=== PATIENT | female | born 1985 | race Caucasian/White ===

== ENCOUNTER 2018-03-15 18:53 | Emergency (ER) | payer MEDICAID ==
[~2018-03-15] VITALS: Ht 170.2 cm; Wt 76.8 kg
[2018-03-15 18:57] VITALS: TEMP 98.4
[2018-03-15] MEDS ORDERED: NEURONTIN400 MG/CAP PO (19:29)
[2018-03-15] MEDS ORDERED: DESYREL 100MG100 MG PO (19:29)
[2018-03-15] MEDS ORDERED: TESSALON P100 MG/CAP PO (19:29)
[2018-03-15 19:38] VITALS: BP 118/60; PULSE 82
== END 2018-03-15 19:43 | disposition home or self-care (01) ==
LOC: COL.ER 18:53
DX: G40.909 Epilepsy, unspecified, not intractable, without status epilepticus (principal); G47.8 Other sleep disorders; R05 Cough; Z90.710 Acquired absence of both cervix and uterus

== ENCOUNTER 2018-03-22 15:24 | Emergency (ER) | payer MEDICAID ==
[~2018-03-22] VITALS: Ht 170.2 cm; Wt 78.6 kg
[~2018-03-22 15:24] MED LIST: DESYREL 100MG100 MG PO; NEURONTIN400 MG/CAP PO; TESSALON P100 MG/CAP PO
[2018-03-22] MEDS ORDERED: IBU600 MG PO (16:55)
[2018-03-22] MEDS ORDERED: NEURONTIN800 MG/TAB PO (16:55)
[2018-03-22] MEDS ORDERED: ROBAXIN 50500 MG/TAB PO (17:03)
[2018-03-22 17:04] VITALS: BP 108/76; PULSE 105; TEMP 97
== END 2018-03-22 17:04 | disposition home or self-care (01) ==
LOC: COL.ER 15:24
DX: Z76.0 Encounter for issue of repeat prescription (principal); G40.909 Epilepsy, unspecified, not intractable, without status epilepticus

== ENCOUNTER 2018-03-24 20:22 | Emergency (ER) | payer MEDICAID ==
[~2018-03-24] VITALS: Ht 170.2 cm; Wt 79.3 kg
[~2018-03-24 20:22] MED LIST changes: +IBU600 MG PO; +NEURONTIN800 MG/TAB PO; +ROBAXIN 50500 MG/TAB PO
[2018-03-24 20:30] VITALS: TEMP 98.8
[2018-03-24 21:09] LABS: BASO # 0.1 (0.0-0.2); BASO % 0.7 % (0.0-2.0); EOS # 0.1 (0.0-0.7); EOS % 0.8 % (0-4.0); GRAN # 5.1 (1.4-6.5); GRAN % 68.5 % (42.2-75.2); HEMATOCRIT 39.1 % (37.0-47.0); HEMOGLOBIN 13.5 g/dl (12.5-16.0); LYMPH # 1.8 (1.2-3.4); MEAN CELL VOLUME 85 fl (80.0-100.0); MEAN CORPUSCULAR HEMOGLOBIN 29 pg (27.0-31.0); MEAN CORPUSCULAR HGB CONC 35 g/dl (33.0-37.0); MEAN PLATELET VOLUME 9.6 fl (7.4-10.4); MONO # 0.4 (0.1-0.6); MONO % 5.9 % (1.7-9.3); PLATELET COUNT 261 K/mm3 (130-400); RED BLOOD COUNT 4.62 M/mm3 (4.10-5.30); REDCELL DISTRIBUTION WIDTH-CV 13.1 % (11.5-14.5)
[2018-03-24 21:22] LABS: ALBUMIN 4.4 gm/dL (3.5-5.0); BILIRUBIN,TOTAL 0.4 mg/dL (0.0-1.0); CALCIUM 9.7 mg/dL (8.4-10.2); CREATININE, serum 0.84 mg/dL (0.52-1.25); POTASSIUM 3.4 mmol/L (3.4-5.0); TOTAL PROTEIN 8.2 gm/dL (6.4-8.2)
[2018-03-24 23:33] VITALS: BP 131/76; PULSE 89
== END 2018-03-24 23:46 | disposition home or self-care (01) ==
LOC: COL.ER 20:22
PROVIDERS: Nurse Practitioner
DX: R10.2 Pelvic and perineal pain (principal); Z90.710 Acquired absence of both cervix and uterus; Z98.890 Other specified postprocedural states
CPT/HCPCS: J1170; Q9967

== ENCOUNTER 2018-04-19 14:26 | Inpatient (IN) | payer MEDICAID ==
[2018-04-19] VITALS (8 sets, daily range): BP systolic 96–128; BP diastolic 54–78; PULSE 64–94; TEMP 97.5
[~2018-04-19] VITALS: Ht 170.2 cm; Wt 77.3 kg
[2018-04-19 15:28] LABS: BASO # 0.1 (0.0-0.2); EOS % 0.2 % (0-4.0); GRAN # 4.3 (1.4-6.5); GRAN % 71.3 % (42.2-75.2); HEMATOCRIT 39.2 % (37.0-47.0); HEMOGLOBIN 13.4 g/dl (12.5-16.0); LYMPH # 1.4 (1.2-3.4); LYMPH % 22.2 % (20.0-51.0); MEAN CELL VOLUME 84 fl (80.0-100.0); MEAN CORPUSCULAR HEMOGLOBIN 29 pg (27.0-31.0); MEAN CORPUSCULAR HGB CONC 34 g/dl (33.0-37.0); MEAN PLATELET VOLUME 9.9 fl (7.4-10.4); MONO # 0.3 (0.1-0.6); MONO % 5.1 % (1.7-9.3); PLATELET COUNT 269 K/mm3 (130-400); RED BLOOD COUNT 4.65 M/mm3 (4.10-5.30); REDCELL DISTRIBUTION WIDTH-CV 13.3 % (11.5-14.5)
[2018-04-19 15:41] LABS: ALANINE AMINOTRANSFERASE 66 U/L (9-52); ALBUMIN 4.3 gm/dL (3.5-5.0); ALKALINE PHOSPHATASE 37 U/L (50-136); ANION GAP 11 mmol/L (7-16); AST,SGOT 40 U/L (15-37); BILIRUBIN,TOTAL 0.5 mg/dL (0.0-1.0); BLOOD UREA NITROGEN 12 mg/dL (7-17); CALCIUM 9.7 mg/dL (8.4-10.2); CARBON DIOXIDE 24 mmol/L (22-30); CHLORIDE 107 mmol/L (98-107); CREATININE, serum 0.74 mg/dL (0.52-1.25); GLUCOSE 101 mg/dL (74-106); POTASSIUM 3.7 mmol/L (3.4-5.0); SODIUM 143 mmol/L (137-145); TOTAL PROTEIN 8.1 gm/dL (6.4-8.2)
[2018-04-19 15:49] LABS: COLLECTION METHOD CLEAN CATCH
[2018-04-19 16:00] LABS: C-REACTIVE PROTEIN < 0.5 mg/dL (0.0-0.9)
[2018-04-19 16:04] LABS: PH 6 (5-8); SQUAMOUS EPITHELIAL None Seen /hpf; URINE APPEARANCE Clear; URINE BACTERIA None Seen /hpf; URINE BILIRUBIN Negative (NEGATIVE); URINE BLOOD 3+ (NEGATIVE); URINE COLOR Yellow; URINE GLUCOSE Negative (NEGATIVE); URINE KETONE Negative (NEGATIVE); URINE LEUKOCYTE ESTERASE Negative (NEGATIVE); URINE NITRATE Negative (NEGATIVE); URINE PROTEIN(semi-quant) Negative (NEGATIVE); URINE UROBILINOGEN Negative (NEGATIVE)
[2018-04-20 05:20] VITALS: BP 94/54; PULSE 76; TEMP 97.8
[2018-04-20 08:03] VITALS: BP 112/63; PULSE 67; TEMP 98.5
[2018-04-20] MEDS ORDERED: IBU800 M1 PO (10:08)
[2018-04-20] MEDS ORDERED: ROXICODONE15 MG PO (10:09)
[2018-04-20 12:15] VITALS: BP 101/63; PULSE 74; TEMP 98
[2018-04-20 16:24] VITALS: BP 115/69; PULSE 74; TEMP 97.8
== END 2018-04-20 20:05 | disposition home or self-care (01) | DRG 909 ==
LOC: COL.ER 14:26 → SDCO 16:20 → OB 18:19 → SDCO 19:00 → OB 19:05
PROVIDERS: Emergency Medicine; Obstetrics & Gynecology
PROC: 0DNN0ZZ Release Sigmoid Colon, Open Approach (ICD-10-PCS; 2018-04-19)
PROC: 0UQG0ZZ Repair Vagina, Open Approach (ICD-10-PCS; principal; 2018-04-19 18:00)
DX: T81.31XA Disruption of external operation (surgical) wound, not elsewhere classified, initial encounter (principal); K66.0 Peritoneal adhesions (postprocedural) (postinfection); G40.909 Epilepsy, unspecified, not intractable, without status epilepticus; Z86.11 Personal history of tuberculosis; B18.2 Chronic viral hepatitis C
CPT/HCPCS: A4314; C1765; J0690; J1100; J1170; J1885; J2060; J2250; J2405; J2704; J2710; J2795; J3010; J7030; J7120

== ENCOUNTER 2018-04-24 17:36 | Emergency (ER) | payer MEDICAID ==
[~2018-04-24] VITALS: Ht 170.2 cm; Wt 77.3 kg
[~2018-04-24 17:36] MED LIST changes: +IBU800 M1 PO; +ROXICODONE15 MG PO
[2018-04-24 17:40] VITALS: TEMP 98.4
[2018-04-24 18:07] LABS: COLLECTION METHOD CLEAN CATCH
[2018-04-24 18:13] LABS: BASO % 0.7 % (0.0-2.0); EOS # 0.1 (0.0-0.7); EOS % 2.4 % (0-4.0); GRAN # 3.6 (1.4-6.5); GRAN % 62.3 % (42.2-75.2); HEMOGLOBIN 11.8 g/dl (12.5-16.0); LYMPH # 1.6 (1.2-3.4); LYMPH % 26.9 % (20.0-51.0); MEAN CELL VOLUME 85 fl (80.0-100.0); MEAN CORPUSCULAR HEMOGLOBIN 29 pg (27.0-31.0); MEAN CORPUSCULAR HGB CONC 34 g/dl (33.0-37.0); MEAN PLATELET VOLUME 9.8 fl (7.4-10.4); MONO # 0.4 (0.1-0.6); MONO % 7.5 % (1.7-9.3); PLATELET COUNT 281 K/mm3 (130-400); RED BLOOD COUNT 4.08 M/mm3 (4.10-5.30); REDCELL DISTRIBUTION WIDTH-CV 13.3 % (11.5-14.5)
[2018-04-24 18:14] LABS: HEMATOCRIT 34.8 % (37.0-47.0); PH 6 (5-8); SQUAMOUS EPITHELIAL None Seen /hpf; URINE APPEARANCE Clear; URINE BACTERIA None Seen /hpf; URINE BILIRUBIN Negative (NEGATIVE); URINE BLOOD Negative (NEGATIVE); URINE COLOR Straw; URINE GLUCOSE Negative (NEGATIVE); URINE KETONE Negative (NEGATIVE); URINE LEUKOCYTE ESTERASE Negative (NEGATIVE); URINE NITRATE Negative (NEGATIVE); URINE PROTEIN(semi-quant) Negative (NEGATIVE); URINE RBC 0-2 /hpf; URINE UROBILINOGEN Negative (NEGATIVE)
[2018-04-24 18:27] LABS: ALBUMIN 3.4 gm/dL (3.5-5.0); BILIRUBIN,TOTAL 0.2 mg/dL (0.0-1.0); CREATININE, serum 0.72 mg/dL (0.52-1.25); POTASSIUM 3.4 mmol/L (3.4-5.0); TOTAL PROTEIN 6.7 gm/dL (6.4-8.2)
[2018-04-24 19:51] VITALS: BP 112/58; PULSE 92
== END 2018-04-24 19:57 | disposition home or self-care (01) ==
LOC: COL.ER 17:36
PROVIDERS: Emergency Medicine
DX: G89.18 Other acute postprocedural pain (principal); R10.32 Left lower quadrant pain; Z90.710 Acquired absence of both cervix and uterus; Z98.890 Other specified postprocedural states
CPT/HCPCS: J0780; J1170; J7030

== ENCOUNTER 2018-04-26 20:06 | Emergency (ER) | payer MEDICAID ==
[~2018-04-26] VITALS: Ht 170.2 cm; Wt 77.3 kg
[2018-04-26 20:11] VITALS: TEMP 98.5
[2018-04-26 21:15] LABS: BASO # 0.1 (0.0-0.2); EOS # 0.1 (0.0-0.7); EOS % 1.6 % (0-4.0); GRAN # 2.9 (1.4-6.5); GRAN % 59.1 % (42.2-75.2); HEMOGLOBIN 12.1 g/dl (12.5-16.0); LYMPH # 1.6 (1.2-3.4); LYMPH % 32.4 % (20.0-51.0); MEAN CELL VOLUME 85 fl (80.0-100.0); MEAN CORPUSCULAR HEMOGLOBIN 29 pg (27.0-31.0); MEAN CORPUSCULAR HGB CONC 34 g/dl (33.0-37.0); MEAN PLATELET VOLUME 9.9 fl (7.4-10.4); MONO # 0.3 (0.1-0.6); MONO % 5.7 % (1.7-9.3); PLATELET COUNT 298 K/mm3 (130-400); RED BLOOD COUNT 4.17 M/mm3 (4.10-5.30); REDCELL DISTRIBUTION WIDTH-CV 13.3 % (11.5-14.5)
[2018-04-26 21:17] LABS: HEMATOCRIT 35.5 % (37.0-47.0)
[2018-04-26 21:24] LABS: ALBUMIN 3.7 gm/dL (3.5-5.0); BILIRUBIN,TOTAL 0.2 mg/dL (0.0-1.0); C-REACTIVE PROTEIN 0.9 mg/dL (0.0-0.9); CALCIUM 9.4 mg/dL (8.4-10.2); CREATININE, serum 0.72 mg/dL (0.52-1.25); POTASSIUM 3.5 mmol/L (3.4-5.0); TOTAL PROTEIN 7.2 gm/dL (6.4-8.2)
[2018-04-26 22:13] LABS: COLLECTION METHOD CLEAN CATCH
[2018-04-26 22:19] LABS: PH 7 (5-8); SQUAMOUS EPITHELIAL None Seen /hpf; URINE APPEARANCE Clear; URINE BACTERIA None Seen /hpf; URINE BILIRUBIN Negative (NEGATIVE); URINE BLOOD Negative (NEGATIVE); URINE COLOR Straw; URINE GLUCOSE Negative (NEGATIVE); URINE KETONE Negative (NEGATIVE); URINE LEUKOCYTE ESTERASE Negative (NEGATIVE); URINE NITRATE Negative (NEGATIVE); URINE PROTEIN(semi-quant) Negative (NEGATIVE); URINE RBC 0-2 /hpf; URINE UROBILINOGEN Negative (NEGATIVE)
[2018-04-26] MEDS ORDERED: NORVASC 5MG5 MG/TAB PO ×2 (22:28)
[2018-04-26] MEDS ORDERED: PERCOCET 325 MG1 TA2 PO (22:36)
[2018-04-26 22:45] VITALS: BP 108/78; PULSE 89
== END 2018-04-26 23:05 | disposition home or self-care (01) ==
LOC: COL.ER 20:06
PROVIDERS: Emergency Medicine
DX: N99.3 Prolapse of vaginal vault after hysterectomy (principal)
CPT/HCPCS: J1170; J2405; J7030; Q9967

== ENCOUNTER 2018-05-09 19:04 | Emergency (ER) | payer MEDICAID ==
[~2018-05-09] VITALS: Ht 170.2 cm; Wt 78.6 kg
[~2018-05-09 19:04] MED LIST changes: +NORVASC 5MG5 MG/TAB PO; +PERCOCET 325 MG1 TA2 PO
[2018-05-09 19:07] VITALS: BP 136/60
[2018-05-09] MEDS ORDERED: DESYREL 50MG50 MG PO (19:18)
[2018-05-09] MEDS ORDERED: TYLENOL 500MG500 MG PO (19:21)
[2018-05-09 19:40] LABS: COLLECTION METHOD CLEAN CATCH
[2018-05-09 19:47] LABS: BASO # 0.1 (0.0-0.2); EOS # 0.1 (0.0-0.7); EOS % 1.2 % (0-4.0); GRAN # 3.8 (1.4-6.5); GRAN % 55.3 % (42.2-75.2); HEMATOCRIT 38.4 % (37.0-47.0); HEMOGLOBIN 13.1 g/dl (12.5-16.0); LYMPH # 2.5 (1.2-3.4); LYMPH % 36.5 % (20.0-51.0); MEAN CELL VOLUME 84 fl (80.0-100.0); MEAN CORPUSCULAR HEMOGLOBIN 29 pg (27.0-31.0); MEAN CORPUSCULAR HGB CONC 34 g/dl (33.0-37.0); MEAN PLATELET VOLUME 9.8 fl (7.4-10.4); MONO # 0.4 (0.1-0.6); MONO % 5.9 % (1.7-9.3); PLATELET COUNT 322 K/mm3 (130-400); RED BLOOD COUNT 4.58 M/mm3 (4.10-5.30); REDCELL DISTRIBUTION WIDTH-CV 13.2 % (11.5-14.5)
[2018-05-09 19:51] LABS: PH 7 (5-8); SQUAMOUS EPITHELIAL 0-2 /hpf; URINE APPEARANCE Clear; URINE BACTERIA Rare /hpf; URINE BILIRUBIN Negative (NEGATIVE); URINE BLOOD Negative (NEGATIVE); URINE COLOR Yellow; URINE GLUCOSE Negative (NEGATIVE); URINE KETONE Negative (NEGATIVE); URINE LEUKOCYTE ESTERASE Negative (NEGATIVE); URINE NITRATE Negative (NEGATIVE); URINE PROTEIN(semi-quant) Negative (NEGATIVE); URINE RBC 0-2 /hpf; URINE UROBILINOGEN Negative (NEGATIVE)
[2018-05-09] MEDS ORDERED: PERCOCET 325 MG1 TA2 PO (20:17)
[2018-05-09 20:23] LABS: ANION GAP 10 mmol/L (7-16); BLOOD UREA NITROGEN 12 mg/dL (7-17); CALCIUM 9.5 mg/dL (8.4-10.2); CARBON DIOXIDE 25 mmol/L (22-30); CHLORIDE 106 mmol/L (98-107); CREATININE, serum 0.72 mg/dL (0.52-1.25); GLUCOSE 86 mg/dL (74-106); POTASSIUM 3.6 mmol/L (3.4-5.0); SODIUM 141 mmol/L (137-145)
[2018-05-09 20:24] LABS: C-REACTIVE PROTEIN < 0.5 mg/dL (0.0-0.9)
[2018-05-09 20:44] VITALS: PULSE 84; TEMP 99.2
== END 2018-05-09 20:43 | disposition home or self-care (01) ==
LOC: COL.ER 19:04
PROVIDERS: Emergency Medicine
DX: R10.30 Lower abdominal pain, unspecified (principal); Z90.710 Acquired absence of both cervix and uterus; Z98.890 Other specified postprocedural states

== ENCOUNTER 2018-05-12 22:40 | Emergency (ER) | payer MEDICAID ==
[~2018-05-12 22:40] MED LIST changes: +DESYREL 50MG50 MG PO; +TYLENOL 500MG500 MG PO
[2018-05-12 22:42] VITALS: TEMP 99.1
[2018-05-12 23:11] LABS: COLLECTION METHOD CLEAN CATCH
[2018-05-12 23:13] LABS: BASO # 0.1 (0.0-0.2); BASO % 0.9 % (0.0-2.0); EOS # 0.2 (0.0-0.7); EOS % 2.7 % (0-4.0); GRAN # 3.5 (1.4-6.5); GRAN % 51.1 % (42.2-75.2); HEMOGLOBIN 12.5 g/dl (12.5-16.0); LYMPH # 2.6 (1.2-3.4); LYMPH % 38.1 % (20.0-51.0); MEAN CELL VOLUME 84 fl (80.0-100.0); MEAN CORPUSCULAR HEMOGLOBIN 29 pg (27.0-31.0); MEAN CORPUSCULAR HGB CONC 34 g/dl (33.0-37.0); MONO # 0.5 (0.1-0.6); MONO % 7.1 % (1.7-9.3); PLATELET COUNT 297 K/mm3 (130-400); RED BLOOD COUNT 4.39 M/mm3 (4.10-5.30); REDCELL DISTRIBUTION WIDTH-CV 13.2 % (11.5-14.5)
[2018-05-12 23:14] LABS: HEMATOCRIT 36.7 % (37.0-47.0)
[2018-05-12 23:17] LABS: PH 7 (5-8); SQUAMOUS EPITHELIAL 0-2 /hpf; URINE APPEARANCE Clear; URINE BACTERIA None Seen /hpf; URINE BILIRUBIN Negative (NEGATIVE); URINE BLOOD Negative (NEGATIVE); URINE COLOR Straw; URINE GLUCOSE Negative (NEGATIVE); URINE KETONE Negative (NEGATIVE); URINE LEUKOCYTE ESTERASE Negative (NEGATIVE); URINE NITRATE Negative (NEGATIVE); URINE PROTEIN(semi-quant) Negative (NEGATIVE); URINE RBC 0-2 /hpf; URINE UROBILINOGEN Negative (NEGATIVE)
[2018-05-12 23:25] LABS: ALANINE AMINOTRANSFERASE 38 U/L (9-52); ALBUMIN 4.1 gm/dL (3.5-5.0); ALKALINE PHOSPHATASE 39 U/L (50-136); ANION GAP 10 mmol/L (7-16); AST,SGOT 26 U/L (15-37); BILIRUBIN,TOTAL 0.1 mg/dL (0.0-1.0); BLOOD UREA NITROGEN 15 mg/dL (7-17); CALCIUM 9.7 mg/dL (8.4-10.2); CARBON DIOXIDE 24 mmol/L (22-30); CHLORIDE 107 mmol/L (98-107); CREATININE, serum 0.68 mg/dL (0.52-1.25); GLUCOSE 108 mg/dL (74-106); LIPASE 74 U/L (23-300); POTASSIUM 4.1 mmol/L (3.4-5.0); SODIUM 140 mmol/L (137-145); TOTAL PROTEIN 7.1 gm/dL (6.4-8.2)
[2018-05-12 23:26] LABS: C-REACTIVE PROTEIN < 0.5 mg/dL (0.0-0.9)
[2018-05-13 01:17] VITALS: BP 121/77; PULSE 76
== END 2018-05-13 01:21 | disposition home or self-care (01) ==
LOC: COL.ER 22:40
PROVIDERS: Emergency Medicine
DX: R10.32 Left lower quadrant pain (principal); G40.909 Epilepsy, unspecified, not intractable, without status epilepticus; F17.210 Nicotine dependence, cigarettes, uncomplicated; Z90.710 Acquired absence of both cervix and uterus
CPT/HCPCS: J1170; J2405; J7030

== ENCOUNTER → 2018-10-23 | Outpatient (REF) | LOC: ZLAB.WCH 18:23 | DX: Z01.89 Encounter for other specified special examinations (principal) ==

== ENCOUNTER → 2018-11-20 | Outpatient (CLI) | payer MEDICAID ==
[2018-11-20 20:21] LABS: ALBUMIN 4.3 gm/dL (3.5-5.0); BILIRUBIN UNCONJUGATED 0.3 mg/dL (0.0-1.1); BILIRUBIN,DIRECT 0.3 mg/dL (0.0-0.4); BILIRUBIN,TOTAL 0.5 mg/dL (0.0-1.0); TOTAL PROTEIN 7.3 gm/dL (6.4-8.2)
[2018-11-20 20:25] LABS: BASO # 0.1 (0.0-0.2); EOS # 0.1 (0.0-0.7); EOS % 1.5 % (0-4.0); GRAN # 3.5 (1.4-6.5); GRAN % 57.2 % (42.2-75.2); HEMATOCRIT 40.6 % (37.0-47.0); HEMOGLOBIN 14.1 g/dl (12.5-16.0); LYMPH # 2.1 (1.2-3.4); LYMPH % 34.6 % (20.0-51.0); MEAN CELL VOLUME 87 fl (80.0-100.0); MEAN CORPUSCULAR HEMOGLOBIN 30 pg (27.0-31.0); MEAN CORPUSCULAR HGB CONC 35 g/dl (33.0-37.0); MEAN PLATELET VOLUME 10.9 fl (7.4-10.4); MONO # 0.3 (0.1-0.6); MONO % 5.5 % (1.7-9.3); PLATELET COUNT 289 K/mm3 (130-400); RED BLOOD COUNT 4.68 M/mm3 (4.10-5.30); REDCELL DISTRIBUTION WIDTH-CV 12.3 % (11.5-14.5)
== END ==
LOC: ZLAB.FHCC 19:15 → ZCOL.LAB 19:15
PROVIDERS: Nurse Practitioner Family
DX: Z01.89 Encounter for other specified special examinations (principal)

== ENCOUNTER 2018-12-31 08:59 | Emergency (ER) | payer MEDICAID ==
[~2018-12-31] VITALS: Ht 170.2 cm; Wt 79.5 kg
[2018-12-31 09:12] VITALS: BP 140/65; PULSE 96; TEMP 98.9
== END 2018-12-31 10:49 | disposition home or self-care (01) ==
LOC: COL.ER 08:59
DX: J06.9 Acute upper respiratory infection, unspecified (principal)

== ENCOUNTER → 2019-01-27 | Outpatient (CLI) | payer MEDICAID ==
[2019-01-28 00:22] LABS: HEPATITIS B SURFACE ANTIBODY <2.0 (())
== END ==
LOC: COL.LAB 15:38
DX: R76.11 Nonspecific reaction to tuberculin skin test without active tuberculosis (principal)

== ENCOUNTER → 2019-02-20 | Outpatient (CLI) | payer OTHER ==
[2019-02-20 07:32] LABS: BASO % 0.9 % (0.0-2.0); EOS # 0.1 (0.0-0.7); EOS % 1.8 % (0-4.0); GRAN # 2.5 (1.4-6.5); GRAN % 55.9 % (42.2-75.2); HEMATOCRIT 41.9 % (37.0-47.0); HEMOGLOBIN 14.2 g/dl (12.5-16.0); LYMPH # 1.5 (1.2-3.4); LYMPH % 33.2 % (20.0-51.0); MEAN CELL VOLUME 90 fl (80.0-100.0); MEAN CORPUSCULAR HEMOGLOBIN 31 pg (27.0-31.0); MEAN CORPUSCULAR HGB CONC 34 g/dl (33.0-37.0); MEAN PLATELET VOLUME 9.8 fl (7.4-10.4); MONO # 0.4 (0.1-0.6); PLATELET COUNT 283 K/mm3 (130-400); RED BLOOD COUNT 4.65 M/mm3 (4.10-5.30)
[2019-02-20 07:33] LABS: PROTHROMBIN TIME 11.5 SECONDS (9.7-12.8)
[2019-02-20 07:48] LABS: ALBUMIN 4.6 gm/dL (3.5-5.0); BILIRUBIN UNCONJUGATED 0.4 mg/dL (0.0-1.1); BILIRUBIN,TOTAL 0.4 mg/dL (0.0-1.0); TOTAL PROTEIN 7.9 gm/dL (6.4-8.2)
[2019-02-20 08:50] LABS: THYROID STIMULATING HORMONE 1.05 uIU/mL (0.465-4.680)
[2019-02-20 16:35] LABS: HEPATITIS B SURFACE ANTIGEN Negative (Negative)
[2019-02-23 10:23] LABS: LIVER FIBROSIS APOLIPOPROTEIN 158 mg/dL (>=140)
[2019-02-23 10:37] LABS: LIVER FIBROSIS ALPHA 2 MACRO 226 mg/dL (())
[2019-02-23 14:31] LABS: HCV GENOTYPE 3 (())
== END ==
LOC: COL.RAD 06:45
PROVIDERS: Internal Medicine Gastroenterology
DX: B18.2 Chronic viral hepatitis C (principal)
CPT/HCPCS: A9537

== ENCOUNTER 2019-03-03 07:33 | Day surgery (SDC) | payer OTHER ==
[~2019-03-03] VITALS: Ht 170.2 cm; Wt 74.6 kg
[2019-03-03 07:51] VITALS: BP 106/40; PULSE 71; TEMP 98
[2019-03-03 09:30] VITALS: BP 105/54; PULSE 78; TEMP 97.7
--- NOTE | 2019-03-03 09:30 | NUR ---
Patient brought back to [facility]. Alert and oriented. Vital signs obtained, WNL. States she would like water, peanut butter, crackers, and a pudding. Tolerating well at this time. Friend Noel at bedside. Call hebert within reach, will continue to monitor.
[2019-03-03 09:45] VITALS: BP 100/52; PULSE 75
--- NOTE | 2019-03-03 09:45 | NUR ---
Patient states she is doine well. Denies and nausea or pain. Tolerating food and drink well. Vital signs stable. Will continue to monitor.
[2019-03-03 10:00] VITALS: BP 108/54; PULSE 68
--- NOTE | 2019-03-03 10:00 | NUR ---
Vital signs stable. States she is ready to be discharged at this time. Denies any pain or nausea. Tolerated food and drink well. IV removed per MD orders. Discharge instructions reviewed with patient. Verbalized understanding. Patient states that she will make her own follow up appointment. Patient to get dressed at this time.
--- NOTE | 2019-03-03 10:15 | NUR ---
Patient wheeled down to lobby. To be driven home by friend Noel.
== END 2019-03-03 10:15 | disposition home or self-care (01) ==
LOC: SDCO 07:33
DX: Z12.11 Encounter for screening for malignant neoplasm of colon (principal); Z80.0 Family history of malignant neoplasm of digestive organs; Z83.71 Family history of colonic polyps; K64.4 Residual hemorrhoidal skin tags; K59.00 Constipation, unspecified; R10.32 Left lower quadrant pain; F17.210 Nicotine dependence, cigarettes, uncomplicated; F41.9 Anxiety disorder, unspecified; F41.0 Panic disorder [episodic paroxysmal anxiety]
CPT/HCPCS: J2704; J7030

== ENCOUNTER → 2019-04-14 | Outpatient (CLI) | payer OTHER | LOC: COL.LAB 16:11 | DX: B18.2 Chronic viral hepatitis C (principal) ==

== ENCOUNTER → 2019-06-11 | Outpatient (CLI) | payer OTHER ==
[2019-06-11 09:54] LABS: BASO # 0.1 (0.0-0.2); EOS # 0.1 (0.0-0.7); EOS % 1.9 % (0-4.0); GRAN # 2.6 (1.4-6.5); GRAN % 53.5 % (42.2-75.2); HEMATOCRIT 39.7 % (37.0-47.0); HEMOGLOBIN 13.7 g/dl (12.5-16.0); LYMPH # 1.7 (1.2-3.4); MEAN CELL VOLUME 87 fl (80.0-100.0); MEAN CORPUSCULAR HEMOGLOBIN 30 pg (27.0-31.0); MEAN CORPUSCULAR HGB CONC 35 g/dl (33.0-37.0); MEAN PLATELET VOLUME 9.9 fl (7.4-10.4); MONO # 0.4 (0.1-0.6); MONO % 8.4 % (1.7-9.3); PLATELET COUNT 257 K/mm3 (130-400); RED BLOOD COUNT 4.57 M/mm3 (4.10-5.30); REDCELL DISTRIBUTION WIDTH-CV 12.8 % (11.5-14.5)
[2019-06-11 10:33] LABS: ALBUMIN 4.3 gm/dL (3.5-5.0); BILIRUBIN UNCONJUGATED 0.4 mg/dL (0.0-1.1); BILIRUBIN,DIRECT 0.1 mg/dL (0.0-0.4); BILIRUBIN,TOTAL 0.5 mg/dL (0.0-1.0); TOTAL PROTEIN 7.5 gm/dL (6.4-8.2)
== END ==
LOC: COL.LAB 09:04
PROVIDERS: Internal Medicine Gastroenterology
DX: B18.2 Chronic viral hepatitis C (principal)

== ENCOUNTER → 2019-11-09 | Outpatient (CLI) | payer SELFPAY ==
[2019-11-09 21:08] LABS: HEPATITIS B SURFACE ANTIGEN Negative (Negative)
== END ==
LOC: COL.LAB 11:11
PROVIDERS: Internal Medicine Gastroenterology
DX: B18.2 Chronic viral hepatitis C (principal)